=== PATIENT | female | born 1975 | race Caucasian/White ===

== ENCOUNTER 2024-08-18 12:33 | Outpatient (CLI) | payer BC, SELFPAY ==
--- NOTE | ~2024-08-18 | MR_ITS ---
EXAMINATION: [id number]_MR DATE: 08/18/2024 14:14 INDICATION: Right hip and knee pain TECHNIQUE: 1. Magnetic resonance imaging (MRI) of the right hip was performed without intravenous contrast. Sequ ences included full-field axial PD-weighted FS FSE and T1-weighted FSE, coronal of the pelvis with PD -weighted FS FSE, T2-weighted FSE and T1-weighted FSE, small field of view of the right hip with axi al PD-weighted FS FSE, sagittal PD-weighted FS FSE, coronal PD-weighted FS FSE and coronal T2 weight ed FSE. Additional radial T1-weighted FGR oriented orthogonal to the acetabular rim were obtained for evaluation of the labrum. 2. MRI of the right knee was performed without intravenous contrast. Sequences included coronal PD-we ighted FSE, coronal PD-weighted FS FSE, sagittal T2-weighted FSE, sagittal PD-weighted FS FSE and axi al PD weighted fat saturated FSE. COMPARISON: None FINDINGS: Right hip: Bones/labrum/cartilage: Alignment is normal. Normal bone marrow signal with no fracture, avascular necrosis or pathologic mar row replacing process. Mild osteoarthritis at the right hip. There is a 2.4 x 1.3 x 0.8 cm multilobul ated ganglion cyst along the anterosuperior aspect of the right acetabulum likely representing a prio r labral cyst given the proximity to a tear at the anterosuperior to superolateral right acetabular l abrum. Fluid: Symmetric physiologic amount of fluid within both hip joints. Mild increased fluid signal overlying t he right greater trochanter consistent with mild trochanteric bursitis. Soft tissues: Normal and symmetric muscle bulk and signal in the pelvis and visualized proximal thighs. The iliopso as, gluteal and proximal hamstring tendons are normal. The uterus is not identified and has likely be en surgically resected. Limited evaluation of visceral organs of the pelvis is otherwise unremarkable . No pathologically enlarged pelvic/inguinal lymphadenopathy. Right knee: Medial compartment: Longitudinal horizontal tear extending to the inferior articular surface of the posterior horn and po sterior body of the medial meniscus. Shallow chondral ulceration along the anterior weightbearing med ial femoral condyle. Mild partial-thickness cartilage loss along the medial tibial plateau with small focus of partial-thickness fissuring without degenerative subchondral changes at the central aspect of the medial tibial plateau. Lateral compartment: Lateral meniscus is normal. Partial-thickness chondral fissuring without degenerative subchondral denzel nges at the lateral tibial plateau and at the central weightbearing lateral femoral condyle. Patellofemoral compartment: Deep chondral ulceration at the patellar apical ridge and at the lateral patellar facet and lateral w ith mild underlying subarticular edema-like signal change. Additional deep chondral ulceration with s ubarticular edema-like signal change at the superolateral aspect of the lateral trochlea. Ligaments and tendons: Anterior and posterior cruciate ligaments are normal. The medial collateral ligament and fibular meredith ateral ligament complex are normal. Mild distal quadriceps tendinopathy without discrete tear. The pa tellar tendon is normal. The visualized medial and lateral hamstring tendons as well as the iliotibia l band are normal. Fluid: Small amount of fluid in the suprapatellar pouch which is within normal limits. No loose osteochondr al bodies identified. Moderate-sized Nicholas's cyst measuring 6.5 cm craniocaudally and 3.4 x 1.8 cm ma ximal transaxial dimensions. Osseous/other: Normal marrow signal. There are few small low signal intensity bone islands at the lateral tibial ana teau and at the medial and lateral femoral condyles. No fracture or pathologic marrow replacing proce ss. IMPRESSION: 1. Mild right hip osteoarthritis with tear of the anterosuperior to superolateral right acetabular la jorje and likely associated para labral cyst. 2. Horizontal horizontal tear of the posterior body and posterior horn of the medial meniscus. 3. Tricompartmental osteoarthritis, moderate severity with high-grade chondromalacia in the lateral p atellofemoral compartment and mild with moderate grade chondral malacia the medial and lateral compar tments. 4. Mild distal quadriceps tendinopathy without discrete tear. 5. Moderate-sized Nicholas's cyst. Reviewed, dictated and finalized at location A. IMPRESSION: 1. Mild right hip osteoarthritis with tear of the anterosuperior to superolater al right acetabular labrum and likely associated para labral cyst. 2. Horizontal horizontal tear of the posterior body and posterior horn of the m edial meniscus. 3. Tricompartmental osteoarthritis, moderate severity with high-grade chondroma lacia in the lateral patellofemoral compartment and mild with moderate grade ch ondral malacia the medial and lateral compartments. 4. Mild distal quadriceps tendinopathy without discrete tear. 5. Moderate-sized Nicholas's cyst.
== END 2024-08-18 12:34 | disposition home or self-care (01) ==
LOC: GOSHIMG 12:34
PROVIDERS: PCP Family Medicine Sports Medicine; Visit Provider Family Medicine Sports Medicine
DX: S83.411A Sprain of medial collateral ligament of right knee, initial encounter (principal); S83.241A Other tear of medial meniscus, current injury, right knee, initial encounter; X58.XXXA Exposure to other specified factors, initial encounter; M16.11 Unilateral primary osteoarthritis, right hip; M17.11 Unilateral primary osteoarthritis, right knee; M71.21 Synovial cyst of popliteal space [Baker], right knee
CPT/HCPCS: 73721